=== PATIENT | male | born 1980 | race Caucasian/White ===

== ENCOUNTER 2019-01-07 16:17 | Emergency (ER) | payer MEDICAID ==
--- NOTE | 2019-01-07 17:24 | Emergency Department Record ---
History of Present Illness - General Chief complaint: Cold Stated complaint: CHEST COLD Time Seen by Provider: 01/07/19 16:41 Source: Patient Mode of Arrival: Ambulatory Limitations: No limitations - History of Present Illness Initial comments: pt has been sick for 3 days w productive cough yellow, sob, sinus drainage, chills and sweats, body aches. [facility] and said nothing was done. he feels worse MD complaint: Sore throat Onset/Timin -: Days(s) Consistency: Getting worse Improves with: None Worsens with: None Associated Symptoms: Cough, Rhinorrhea, Sore throat - Related Data Previous Rx's Medication Instructions Recorded Azithromycin [Zithromax] 250 mg PO DAILY #6 tab 01/07/19 Allergies Allergy/AdvReac Type Severity Reaction Status Date / Time No Known Allergies Allergy Unverified 01/06/19 13:05 Travel Screening - Travel/Exposure Within Last 30 Days Have you traveled within the last 30 days?: No - Travel/Exposure Within Last Year Have you traveled outside the [place] in the last year?: No - Additonal Travel Details Have you been exposed to anyone with a communicable illness?: No - Travel Symptoms Symptom Screening: None Review of Systems Reviewed: No additional complaints except as noted below Constitutional: Reports: As per HPI. Denies: Chills, Fever, Malaise, Night sweats, Weakness, Weight change Eyes: Reports: As per HPI. Denies: Eye discharge, Eye pain, Photophobia, Vision change ENT: Reports: As per HPI, Congestion, Throat pain. Denies: Dental pain, Ear pain, Epistaxis, Hearing loss Respiratory: Reports: As per HPI, Cough. Denies: Dyspnea, Hemoptysis, Stridor, Wheezes Cardiovascular: Reports: As per HPI. Denies: Arrhythmia, Chest pain, Dyspnea on exertion, Edema, Murmurs, Orthopnea, Palpitations, Paroxysmal nocturnal dyspnea, Rheumatic Fever, Syncope Endocrine: Reports: As per HPI. Denies: Fatigue, Heat or cold intolerance, Polydipsia, Polyuria Gastrointestinal: Reports: As per HPI. Denies: Abdominal pain, Constipation, Diarrhea, Hematemesis, Hematochezia, Melena, Nausea, Vomiting Genitourinary: Reports: As per HPI. Denies: Dysuria, Frequency, Hematuria, Incontinence, Retention, Testicular pain, Testicular mass, Urgency Musculoskeletal: Reports: As per HPI. Denies: Arthralgia, Back pain, Gout, Joint swelling, Myalgia, Neck pain Skin: Reports: As per HPI. Denies: Bruising, Change in color, Change in hair/nails, Lesions, Pruritus, Rash Neurological: Reports: As per HPI. Denies: Abnormal gait, Confusion, Headache, Numbness, Paresthesias, Seizure, Tingling, Tremors, Vertigo, Weakness Psychiatric: Reports: As per HPI. Denies: Anxiety, Auditory hallucinations, Depression, Homicidal thoughts, Suicidal thoughts, Visual hallucinations Hematological/Lymphatic: Reports: As per HPI. Denies: Anemia, Blood Clots, Easy bleeding, Easy bruising, Swollen glands Past Medical History - SOCIAL HISTORY Smoking Status: Current every day smoker Alcohol Use: Occasional Drug Use: None - RESPIRATORY Hx Respiratory Disorders: Yes Hx Sleep Apnea: Yes Hx of CPAP: (supposed ot) - CARDIOVASCULAR Hx Cardio Disorders: Yes Hx Hypertension: Yes Comment:: borderline mitral valve prolapse - NEURO Hx Neuro Disorders: No - GI Hx GI Disorders: No - Hx Genitourinary Disorders: No - ENDOCRINE Hx Endocrine Disorders: Yes Hx Diabetes: Yes (type 2) Hx Thyroid Disease: No - MUSCULOSKELETAL Hx Musculoskeletal Disorders: No - PSYCH Hx Psych Problems: Yes Hx Anxiety: Yes Hx Depression: Yes Comment:: ADHD - HEMATOLOGY/ONCOLOGY Hx Hematology/Oncology Disorders: No Family Medical History Any Significant Family History?: No Physical Exam - General General Appearance: Alert, Oriented x3, Cooperative, Mild distress - Head Head exam: Normal inspection - Eye Eye exam: Normal appearance, PERRL, EOMI Pupils: Normal accommodation - ENT ENT exam: Normal exam, Mucous membranes moist, Normal external ear exam, Normal orophraynx Ear exam: Normal external inspection. negative: External canal tenderness Nasal Exam: Normal inspection. negative: Discharge, Sinus tenderness Mouth exam: Normal external inspection, Tongue normal Teeth exam: Normal inspection. negative: Dental caries Throat exam: Normal inspection, Tonsillar erythema. negative: Tonsillar exudate - Neck Neck exam: Normal inspection, Full ROM. negative: Tenderness - Respiratory Respiratory exam: Wheezes (slight). negative: Respiratory distress - Cardiovascular Cardiovascular Exam: Regular rate, Normal rhythm, Normal heart sounds - GI/Abdominal GI/Abdominal exam: Soft, Normal bowel sounds. negative: Tenderness - Rectal Rectal exam: Deferred - exam: Deferred - Extremities Extremities exam: Normal inspection, Full ROM, Normal capillary refill. negative: Tenderness - Back Back exam: Reports: Normal inspection, Full ROM. Denies: Muscle spasm, Rash noted, Tenderness - Neurological Neurological exam: Alert, CN II-XII intact, Normal gait, Oriented X3 - Psychiatric Psychiatric exam: Normal affect, Normal mood - Skin Skin exam: Dry, Intact, Normal color, Warm Course Vital Signs 01/07/19 16:38 Temperature 98.2 F Pulse Rate 96 H Respiratory 16 Rate Blood Pressure 110/85 Pulse Ox 96 Disposition Disposition: Discharge Clinical Impression: Bronchitis Disposition: Home, Self-Care Condition: (1) Good Instructions: Acute Bronchitis (ED) Additional Instructions: follow up with family doctor. return sooner if worse. rest Prescriptions: Azithromycin [Zithromax] 250 mg PO DAILY #6 tab Forms: Patient Portal Access Quality - Quality Measures Quality Measures: N/A - Blood Pressure Screening Does Patient Have Any of the Following: No Blood Pressure Classification: Pre-Hypertensive BP Reading Systolic Measurement: 110 Diastolic Measurement: 85 Screening for High Blood Pressure: < Pre-Hypertensive BP, F/U Documented > [G8950] Pre-Hypertensive Follow-up Interventions: Follow-up with rescreen every year.
[2019-01-07 17:41] LABS: STREP A SCREEN NEGATIVE (NEGATIVE)
[2019-01-07 17:55] LABS: INFLUENZA A NEGATIVE (NEGATIVE); INFLUENZA B NEGATIVE (NEGATIVE)
--- NOTE | 2019-01-09 09:59 | RADIOLOGY REPORT ---
EXAM: CHEST 2 VIEWS HISTORY: SINUS AND CHEST COLD. TECHNIQUE: PA and lateral views. COMPARISON: None. FINDINGS: Heart size is normal. No definite acute infiltrate seen. No pleural effusion or pneumothorax evident. Curvilinear metallic density overlying the left anterior chest wall is presumably a periareolar ornamental device. Mild spurring in the thoracic spine. IMPRESSION: NO ACUTE INFILTRATE IDENTIFIED. MINOR SPURRING IN THE THORACIC SPINE. JOB NUMBER: [id number] MTDD
== END 2019-01-07 18:40 | disposition home or self-care (01) ==
LOC: ER 16:17
DX: J20.9 Acute bronchitis, unspecified (principal); R06.02 Shortness of breath; I10 Essential (primary) hypertension; F17.210 Nicotine dependence, cigarettes, uncomplicated
CPT/HCPCS: 36416; 71046; 82948; 87400; 87880; 99283

== ENCOUNTER 2019-05-11 12:40 | Emergency (ER) | payer MEDICAID ==
--- NOTE | 2019-05-11 13:05 | Emergency Department Record ---
History of Present Illness - General Chief Complaint: Abdominal Pain Stated Complaint: ABD/LOWER BACK PAIN Time Seen by Provider: 05/11/19 12:58 Source: Patient, RN notes reviewed Mode of Arrival: Ambulatory - History of Present Illness Initial Comments: two days of periumbilical pain and lower abd pain and he has guarding and rebound. BM today loose and green, no vomiting and he has nausea when he eats food Onset/Timin -: Days(s) Severity: Moderate Severity scale (1-10): 9 Quality: Aching - Related Data Previous Rx's Medication Instructions Recorded Dicyclomine HCl [Bentyl] 10 mg PO Q8H #10 cap 05/11/19 Allergies Allergy/AdvReac Type Severity Reaction Status Date / Time No Known Allergies Allergy HYPERSENSIT Verified 05/11/19 12:49 IVITY Travel Screening - Travel/Exposure Within Last 30 Days Have you traveled within the last 30 days?: No - Travel/Exposure Within Last Year Have you traveled outside the [place] in the last year?: No - Additonal Travel Details Have you been exposed to anyone with a communicable illness?: No - Travel Symptoms Symptom Screening: None Review of Systems Reviewed: No additional complaints except as noted below Constitutional: Reports: As per HPI. Denies: Chills, Fever, Malaise, Night sweats, Weakness, Weight change Eyes: Reports: As per HPI. Denies: Eye discharge, Eye pain, Photophobia, Vision change ENT: Reports: As per HPI. Denies: Congestion, Dental pain, Ear pain, Epistaxis, Hearing loss, Throat pain Respiratory: Reports: As per HPI. Denies: Cough, Dyspnea, Hemoptysis, Stridor, Wheezes Cardiovascular: Reports: As per HPI. Denies: Arrhythmia, Chest pain, Dyspnea on exertion, Edema, Murmurs, Orthopnea, Palpitations, Paroxysmal nocturnal dyspnea, Rheumatic Fever, Syncope Endocrine: Reports: As per HPI. Denies: Fatigue, Heat or cold intolerance, Polydipsia, Polyuria Gastrointestinal: Reports: As per HPI, Abdominal pain, Nausea. Denies: Constipation, Diarrhea, Hematemesis, Hematochezia, Melena, Vomiting Genitourinary: Reports: As per HPI. Denies: Dysuria, Frequency, Hematuria, Incontinence, Retention, Testicular pain, Testicular mass, Urgency Musculoskeletal: Reports: As per HPI. Denies: Arthralgia, Back pain, Gout, Joint swelling, Myalgia, Neck pain Skin: Reports: As per HPI. Denies: Bruising, Change in color, Change in hair/nails, Lesions, Pruritus, Rash Neurological: Reports: As per HPI. Denies: Abnormal gait, Confusion, Headache, Numbness, Paresthesias, Seizure, Tingling, Tremors, Vertigo, Weakness Psychiatric: Reports: As per HPI. Denies: Anxiety, Auditory hallucinations, Depression, Homicidal thoughts, Suicidal thoughts, Visual hallucinations Hematological/Lymphatic: Reports: As per HPI. Denies: Anemia, Blood Clots, Easy bleeding, Easy bruising, Swollen glands Past Medical History - SOCIAL HISTORY Smoking Status: Current every day smoker Alcohol Use: Rare Drug Use: None - RESPIRATORY Hx Respiratory Disorders: Yes Hx Sleep Apnea: Yes Hx of CPAP: (supposed to) - CARDIOVASCULAR Hx Cardio Disorders: Yes Hx Hypertension: Yes Comment:: borderline mitral valve prolapse - NEURO Hx Neuro Disorders: No - GI Hx GI Disorders: No - Hx Genitourinary Disorders: Yes Hx Kidney Stones: Yes - ENDOCRINE Hx Endocrine Disorders: Yes Hx Diabetes: Yes (type 2) Hx Thyroid Disease: No - MUSCULOSKELETAL Hx Musculoskeletal Disorders: No - PSYCH Hx Psych Problems: Yes Hx Anxiety: Yes Hx Depression: Yes Comment:: ADHD - HEMATOLOGY/ONCOLOGY Hx Hematology/Oncology Disorders: No Family Medical History Any Significant Family History?: No Physical Exam - General General Appearance: Alert, Oriented x3, Cooperative, Mild distress - Head Head exam: Normal inspection - Eye Eye exam: Normal appearance, PERRL Pupils: Normal accommodation - ENT ENT exam: Normal exam, Mucous membranes moist, Normal external ear exam, Normal orophraynx, TM's normal bilaterally Ear exam: Normal external inspection. negative: External canal tenderness Nasal Exam: Normal inspection. negative: Discharge, Sinus tenderness Mouth exam: Normal external inspection, Tongue normal Teeth exam: Normal inspection. negative: Dental caries Throat exam: Normal inspection. negative: Tonsillar erythema, Tonsillar exudate - Neck Neck exam: Normal inspection, Full ROM. negative: Tenderness - Respiratory Respiratory exam: Normal lung sounds bilaterally. negative: Respiratory distress - Cardiovascular Cardiovascular Exam: Regular rate, Normal rhythm, Normal heart sounds - GI/Abdominal GI/Abdominal exam: Soft, Normal bowel sounds. negative: Tenderness - Rectal Rectal exam: Deferred - exam: Deferred - Extremities Extremities exam: Normal inspection, Full ROM, Normal capillary refill. neg ative: Tenderness - Back Back exam: Reports: Normal inspection, Full ROM. Denies: Muscle spasm, Rash noted, Tenderness - Neurological Neurological exam: Alert, Normal gait, Oriented X3, Reflexes normal - Psychiatric Psychiatric exam: Normal affect, Normal mood - Skin Skin exam: Dry, Intact, Normal color, Warm Course Vital Signs 05/11/19 12:48 Temperature 98.7 F Pulse Rate [ 110 H Pulse Ox Probe] Respiratory 18 Rate Blood Pressure 127/93 [Left Arm] Pulse Ox 97 - Reevaluation(s) Reevaluation #1: feeling better 05/11/19 15:03 Medical Decision Making - Data Complexity MDM Data: Labs Ordered and/or Reviewed, X-Ray Ordered and/or Reviewed (CT scan with air fluid levels consistent with infectious or inflamatory enteritis) - Lab Data Result diagrams: 05/11/19 13:25 05/11/19 13:25 Disposition Clinical Impression: Enteritis Abdominal pain Qualifiers: Abdominal location: lower abdomen, unspecified Qualified Code(s): R10.30 - Lower abdominal pain, unspecified Disposition: Home, Self-Care Condition: (1) Good Instructions: Enteritis (ED) Additional Instructions: clear liquids for 24 hours follow up with family Dr in 1-2 days and return to ED if worse tylenol for pain 2 pills three times a day Prescriptions: Dicyclomine HCl [Bentyl] 10 mg PO Q8H #10 cap Forms: Patient Portal Access Time of Disposition: 15:04 Quality - Quality Measures Quality Measures: N/A - Blood Pressure Screening Does Patient Have Any of the Following: No Blood Pressure Classification: Pre-Hypertensive BP Reading Systolic Measurement: 124 Diastolic Measurement: 76 Screening for High Blood Pressure: < Pre-Hypertensive BP, F/U Documented > [G8950] Pre-Hypertensive Follow-up Interventions: Referral to alternative/primary care provider.
[2019-05-11 13:30] LABS: BASO % 0.6 % (0-6); EOS % 1.3 % (0-6); GRAN % 74.9 % (47-80); HEMATOCRIT 47.9 % (42.0-52.0); LYMPH % 17.8 % (16-45); MEAN CELL VOLUME 90.5 fl (81-97); MEAN CORPUSCULAR HEMOGLOBIN 30.2 pg (27-33); MEAN CORPUSCULAR HGB CONC 33.4 g/dl (32-36); MEAN PLATELET VOLUME 9.8 fl (7.4-10.4); MONO % 5.4 % (0-9); PLATELET COUNT 265 K/uL (130-400); RED BLOOD COUNT 5.29 M/uL (4.40-5.70); RED CELL DISTRIBUTION WIDTH 12.7 % (11.5-14.5); WHITE BLOOD COUNT W/O DIFF 11.9 K/uL (4.2-12.2)
[2019-05-11 13:39] LABS: BLOOD UREA NITROGEN 8 mg/dL (6-20); CREATININE 0.8 mg/dL (0.7-1.2); EST GLOMERULAR FILTRATION RATE > 60 mL/min
[2019-05-11 13:40] LABS: LIPASE 18 U/L (13-60); TOTAL PROTEIN 7.2 g/dL (6.6-8.7)
[2019-05-11 13:42] LABS: GLUCOSE,RANDOM 281 mg/dL (74-109)
[2019-05-11 13:44] LABS: ALBUMIN 4.2 g/dL (4.0-5.0); ALKALINE PHOSPHATASE 97 U/L (40-129); ALT/SGPT 24 U/L (<41); AST/SGOT 16 U/L (10.0-50.0)
[2019-05-11 13:45] LABS: BILIRUBIN,DIRECT < 0.2 mg/dL (0-0.3)
[2019-05-11] MEDS: DICYCLOMINE HCL 10 MG CAPSULE PO ONE (13:52)
[2019-05-11] MEDS: 0.9 % SODIUM CHLORIDE 1000ML 1,000 ML IV ONE (13:54)
[2019-05-11] MEDS: 0.9 % SODIUM CHLORIDE 1000ML 1,000 ML IV SCH (14:39)
[2019-05-11 15:19] LABS: URINE APPEARANCE CLEAR; URINE BILIRUBIN NEGATIVE (NEGATIVE); URINE BLOOD NEGATIVE (NEGATIVE); URINE COLOR YELLOW; URINE KETONE NEGATIVE (NEGATIVE); URINE LEUKOCYTE ESTERASE NEGATIVE (NEGATIVE); URINE NITRITE NEGATIVE (NEGATIVE); URINE PROTEIN NEGATIVE (NEGATIVE); URINE UROBILINOGEN 0.2 E.U./dL (0.20 - 1.00)
[2019-05-11 15:20] LABS: URINE GLUCOSE (UA) >=1000 mg/dL (NEGATIVE)
--- NOTE | 2019-05-12 09:44 | CT SCAN REPORT ---
EXAM: CT OF THE ABDOMEN AND PELVIS WITHOUT IV CONTRAST HISTORY: THIS IS A 38-YEAR-OLD MALE WITH PERIUMBILICAL PAIN AND CONSTIPATION FOR TWO DAYS. HISTORY OF KIDNEY STONES. TECHNIQUE: CT of the abdomen and pelvis without IV or oral contrast was obtained with reconstruction of coronal and sagittal planes. Comparison: No prior exams are available for comparison. FINDINGS: The lung bases are clear. Decreased attenuation in the liver is consistent with hepatic steatosis. No contour nodularity or significant hepatic steatosis. There are several punctate cholelithiasis, no inflammatory changes. No appreciable biliary ductal dilatation. The pancreas, spleen, adrenals, and kidneys appear within normal limits. No renal calculi or hydronephrosis. The visualized ureters demonstrate normal course and caliber. The aorta is normal in size. Minimal free fluid is present, no pneumoperitoneum. There are a few loops of small bowel notably within the left abdomen demonstrating diffuse bowel wall thickening and mild edematous changes. No small bowel obstruction. No evidence of acute appendicitis or acute diverticulitis. No significant adenopathy. The osseous structures and abdominal wall appear within normal limits. IMPRESSION: 1. SEVERAL LEFT ABDOMINAL SMALL BOWEL LOOPS WITH DIFFUSE WALL THICKENING AND MILD EDEMATOUS CHANGES APPEARING CONSISTENT WITH INFLAMMATORY VERSUS INFECTIOUS ENTERITIS. TRACE ASCITES. 2. NO CALCULUS OR HYDRONEPHROSIS. 3. MULTIPLE CHOLELITHIASIS, NO INFLAMMATORY CHANGES. 4. HEPATIC STEATOSIS. JOB NUMBER: [id number] MTDD
== END 2019-05-11 15:48 | disposition home or self-care (01) ==
LOC: ER 12:40
DX: K52.9 Noninfective gastroenteritis and colitis, unspecified (principal); R10.33 Periumbilical pain; R11.0 Nausea; F17.210 Nicotine dependence, cigarettes, uncomplicated
CPT/HCPCS: 74176; 80048; 80076; 81003; 83690; 85025; 96360; 99284; J7030